=== PATIENT | female | born 1930 | race Caucasian/White ===

== ENCOUNTER → 2016-05-08 | Outpatient (CLI) | payer OTHER ==
[~2016-05-08] MED LIST: ACIDOPHILUS LA1 EACH PO; ALLOPURINOL 30300 M2 PO; ATORVASTATIN CA40 MG PO; BISACODYL SUPP10 MG RECTAL; CALCIUM 600 +1 EAC1 PO; COLACE100 MG PO; COZAAR 50 MG TA50 M2 PO; DUONEB 2.5-0.5 M3 ML INH; ECOTRIN325 MG PO; EFFIENT10 MG PO; ENOXAPARIN30 MG/0.1 SUBQ; HYDROCODONE-AP1 EAC6 PO; LASIX 40 MG TAB40 M2 PO; LIDODERM 5%1 PATC1 TRANSDERM; MAGOX 400400 MG PO; NAMENDA 10 MG T10 MG PO; NAMENDA XR28 MG PO; NAPROSYN250 MG PO; NORVASC5 MG PO; PEPCID20 MG PO; POTASSIUM20 PO; POVIDINE 10% OI28 G1; REMERON15 MG PO; SILVADENE20 GM; STIMULANT LAXA1 EACH PO; TRAMADOL 50 MG50 MG PO; TYLENOL325 MG PO; UNICOMPLEX M TA1 TA1 PO; VITAMINC500 PO; ZETIA10 MG PO
== END ==
LOC: HYPER 07:01
DX: L89.623 Pressure ulcer of left heel, stage 3 (principal); L89.613 Pressure ulcer of right heel, stage 3; L89.891 Pressure ulcer of other site, stage 1; I73.9 Peripheral vascular disease, unspecified; E78.5 Hyperlipidemia, unspecified; K21.9 Gastro-esophageal reflux disease without esophagitis; F03.90 Unspecified dementia, unspecified severity, without behavioral disturbance, psychotic disturbance, mood disturbance, and anxiety; Z96.643 Presence of artificial hip joint, bilateral

== ENCOUNTER → 2016-08-08 | Outpatient (CLI) | payer OTHER | LOC: HYPER 07-07 11:35 | DX: L89.623 Pressure ulcer of left heel, stage 3 (principal); L89.613 Pressure ulcer of right heel, stage 3; L89.220 Pressure ulcer of left hip, unstageable; I70.244 Atherosclerosis of native arteries of left leg with ulceration of heel and midfoot; I70.234 Atherosclerosis of native arteries of right leg with ulceration of heel and midfoot; L97.821 Non-pressure chronic ulcer of other part of left lower leg limited to breakdown of skin; L97.811 Non-pressure chronic ulcer of other part of right lower leg limited to breakdown of skin; F03.90 Unspecified dementia, unspecified severity, without behavioral disturbance, psychotic disturbance, mood disturbance, and anxiety; I73.9 Peripheral vascular disease, unspecified; E78.5 Hyperlipidemia, unspecified; K21.9 Gastro-esophageal reflux disease without esophagitis; M10.9 Gout, unspecified ==

== ENCOUNTER → 2016-09-08 | Outpatient (CLI) | payer OTHER | LOC: HYPER 07:05 | DX: L89.623 Pressure ulcer of left heel, stage 3 (principal); L89.613 Pressure ulcer of right heel, stage 3; I70.244 Atherosclerosis of native arteries of left leg with ulceration of heel and midfoot; I70.234 Atherosclerosis of native arteries of right leg with ulceration of heel and midfoot; F03.90 Unspecified dementia, unspecified severity, without behavioral disturbance, psychotic disturbance, mood disturbance, and anxiety; L89.220 Pressure ulcer of left hip, unstageable; L97.811 Non-pressure chronic ulcer of other part of right lower leg limited to breakdown of skin; L97.821 Non-pressure chronic ulcer of other part of left lower leg limited to breakdown of skin; I73.9 Peripheral vascular disease, unspecified; E78.5 Hyperlipidemia, unspecified; M10.9 Gout, unspecified; K21.9 Gastro-esophageal reflux disease without esophagitis ==

== ENCOUNTER → 2016-10-06 | Outpatient (CLI) | payer OTHER | LOC: HYPER 07:15 | DX: I70.244 Atherosclerosis of native arteries of left leg with ulceration of heel and midfoot (principal); L89.623 Pressure ulcer of left heel, stage 3; I70.234 Atherosclerosis of native arteries of right leg with ulceration of heel and midfoot; L89.613 Pressure ulcer of right heel, stage 3; L89.220 Pressure ulcer of left hip, unstageable; F03.90 Unspecified dementia, unspecified severity, without behavioral disturbance, psychotic disturbance, mood disturbance, and anxiety; E78.5 Hyperlipidemia, unspecified; K21.9 Gastro-esophageal reflux disease without esophagitis ==

== ENCOUNTER → 2016-11-03 | Outpatient (CLI) | payer OTHER | LOC: HYPER 06:55 | DX: L89.623 Pressure ulcer of left heel, stage 3 (principal); L89.892 Pressure ulcer of other site, stage 2; L89.899 Pressure ulcer of other site, unspecified stage; I70.244 Atherosclerosis of native arteries of left leg with ulceration of heel and midfoot; I70.234 Atherosclerosis of native arteries of right leg with ulceration of heel and midfoot; L97.421 Non-pressure chronic ulcer of left heel and midfoot limited to breakdown of skin; L97.411 Non-pressure chronic ulcer of right heel and midfoot limited to breakdown of skin; E78.5 Hyperlipidemia, unspecified; K21.9 Gastro-esophageal reflux disease without esophagitis; F03.90 Unspecified dementia, unspecified severity, without behavioral disturbance, psychotic disturbance, mood disturbance, and anxiety; Z96.643 Presence of artificial hip joint, bilateral ==

== ENCOUNTER 2016-11-28 17:32 | Inpatient (IN) | payer OTHER ==
[~2016-11-28] VITALS: Ht 167.6 cm; Wt 49.0 kg
--- NOTE | ~2016-11-28 | HC ---
[facility] [place] [address] CONSULTATION Name: RAMBOMACY Room #: 428-P ADM IN M.R.#: [id number] Admission: 11/28/16 Attend Phys: Bassem Fuentes MD Discharge: Date of : 32 Report #: [id number] THIS REPORT FOR: //name// CC: Bassem Cuadra REASON FOR CONSULTATION: I was asked to evaluate concerning left lower extremity nonhealing wounds and subsequent infection. HISTORY OF PRESENT ILLNESS: The patient is an 86-year-old with underlying dementia, hypertension, peripheral vascular disease, who has had nonhealing wounds to her left foot. She has increased pain in her heel. The patient was a poor historian. She has been receiving outpatient wound care. She has grown by history Staph aureus from her wound and has been placed on Bactrim prior to her admission. She had a rise in her creatinine following the Bactrim use and this was discontinued. The patient reports no cardiopulmonary, GI or complaints. ALLERGIES: PLAVIX, PENICILLIN. PAST MEDICAL HISTORY: Peripheral vascular disease with lower extremity stents, appendectomy, chronic back pain, left carotid endarterectomy, gout, hypertension, renal stent, dementia. FAMILY HISTORY: Noncontributory. SOCIAL HISTORY: Nonsmoker, no significant alcohol intake. MEDICATIONS: As noted on her MAR including now vancomycin and clindamycin. PHYSICAL EXAMINATION: VITAL SIGNS: Afebrile and hemodynamically stable. GENERAL: Alert and cooperative, in no acute distress. SKIN: Unremarkable. LYMPH: Unremarkable. CHEST: Clear. HEART: Regular. ABDOMEN: Soft and nontender. EXTREMITIES: Lower extremity, pulses in the feet were diminished bilaterally. She had a very tender eschar wound to the plantar heel on the left. There was an ulceration over the medial first toe associated with erythema and serous drainage. There was an eschar and wound over the fifth metatarsal head on the left with associated erythema and diffuse tenderness. Several toes with onychomycosis. Mild tinea pedis. LABORATORY STUDIES: Sodium 142, potassium 3.6, bicarbonate 22, creatinine 1.2 down from 2.8 at admission. Liver function test normal. Hemoglobin 13, WBC 4, [facility] [address] [place] [address] CONSULTATION Name: TONYA RICKS ANN Room #: 428-P ADM IN [facility].#: [id number] Admission: 11/28/16 Attend Phys: Bassem Fuentes MD Discharge: Date of : 32 Report #: [id number] platelet count 160,000, segs 65%, lymphs 18%. Vancomycin trough yesterday was 7. Urinalysis unremarkable. Foot wound culture showing diphtheroids so far. Blood cultures negative. Arterial scan of the lower extremity is pending. MRI scan of the left foot shows insufficiency fracture involving the first metatarsal head without evidence of osteomyelitis, acute osteomyelitis involving the distal fifth metatarsal across the fifth metatarsophalangeal joint to involve the proximal phalanx. IMPRESSION: An 86-year-old with osteomyelitis of the left fifth metatarsal and proximal phalanx along with nonhealing wound to the first toe and heel. She has underlying peripheral vascular disease and dementia. Recommend continuing vancomycin, have orthopedic surgery evaluate for fifth toe and metatarsal head resection and await vascular studies. <ELECTRONICALLY SIGNED> By: Bennie Meza MD 12/02/16 1604 1256 [id number] Bennie Meza MD /nt
--- NOTE | ~2016-11-28 | EKG ---
[address] [place] [address] ELECTROCARDIOGRAM REPORT Name: TONYA RICKS Room #: 428-P ADM IN M.R.#: [id number] Admission: 11/28/16 Attend Phys: Bassem Fuentes MD Discharge: Date of : 32 Report #: [id number] THIS REPORT FOR: //name// ED Test Date: 2016-11-28 Test Time: 19:09:00 Pat Name: TONYA RICKS Department: Room: 428 Gender: F Electronic Semiconductor Processor: eagle : 1930 Requested By: Narayan Avilez Order Number: [id number] MD: Daniel Potter Measurements Intervals [place] Rate: 82 P: 75 VT: 161 QRS: 31 QRSD: 87 T: 95 QT: 376 QTc: 439 Interpretive Statements Sinus rhythm Probable left atrial enlargement Probable left ventricular hypertrophy Compared to ECG 06/13/2015 17:54:10 Sinus tachycardia no longer present Atrial premature complex(es) no longer present Ventricular premature complex(es) no longer present Electronically Signed On 11-29-2016 14:16:21 CDT by Daniel Potter [email or web address] <ELECTRONICALLY SIGNED> By: Daniel Potter MD 11/29/16 1416 1909 1909 Daniel Potter MD /EPI
--- NOTE | ~2016-11-28 | HC ---
[facility] [place] [address] CONSULTATION Name: TONYA RICKS ANN Room #: 428-P ADM IN M.R.#: [id number] Admission: 11/28/16 Attend Phys: Bassem Fuentes MD Discharge: Date of : 32 Report #: [id number] THIS REPORT FOR: //name// CC: Bassem Cuadra CHIEF COMPLAINT: Left foot pain. HISTORY OF PRESENT ILLNESS: The patient is a pleasant 86-year-old female with a history of dementia. She was admitted for difficulty ambulating. Currently, she is unsure why she has been admitted. There is no family at bedside. Nursing staff reports that her spouse reports that she has been ambulating with a more recent decline in function. She has a history of peripheral vascular disease and lower extremity wounds/ulcers managed by Dr. Lopez Cuadra. Her primary physician is Dr. Juventino Pizarro. It is unclear at this time the exact length of symptoms, but it sounds like she has had chronic leg ulcers off and on. Per chart review, she has been managed with wound care with home health nurse, Thursday, Thursday and Thursday and has recently seen Dr. Pizarro who did a wound culture, which was positive for staph, placed on Bactrim. Per chart review, recent lab work revealed an elevated creatinine. No recent injuries are noted. The patient does not recall if she ambulates with any assisted devices. PAST MEDICAL HISTORY: Significant for peripheral vascular disease, stent placed in the right and left leg x 3, appendectomy, history of low back pain, carotid endarterectomy, gout, hypertension, tonsillectomy, renal stent placed, short term dementia, sees Dr. Grady for this, history of foot sores treated by Dr. Vides as well as Dr. Thomas. PHYSICAL EXAMINATION: GENERAL: Reveals the patient is awake. She is answering questions to the best of her ability. VITAL SIGNS: Temperature 98.0, pulse 83, respirations 17, BP 152/82, O2 sats 93% on room air, height 5 feet 6, weight 108. EXTREMITIES: Examination reveals patient is nontender about the hips, knees and ankles. The left foot reveals tenderness about the forefoot and fifth metatarsal to palpation distally. No significant swelling is noted. She does have a laterally based wound over the fifth metatarsal head with an eschar over this, but it does appear to be approximate 1 cm wound on the left heel without significant surrounding erythema, the right heel demonstrates no such wound. There does not appear to be any significant foot swelling. She is able to minimally flex and extend the toes. She reports intact sensation to light touch, although it does seem like this is somewhat diminished. No drainage was noted on the dressing and this healed wound appears to be into the dermal layer. LABORATORY DATA: Was reviewed. White count is 6.6 with 76% neutrophils. Radiographs of the left foot revealed diffuse osteopenia and a subacute [address] [address] CONSULTATION Name: RICKSTONYA Room #: 428-P ADM IN M.R.#: [id number] Admission: 11/28/16 Attend Phys: Bassem Fuentes MD Discharge: Date of : 32 Report #: [id number] appearing fracture of the distal fifth metatarsal. IMPRESSION: 1. Left foot ulcerations. 2. Subacute distal fifth metatarsal fracture. 3. Multiple medical comorbidities including peripheral vascular disease and a history of chronic wound management. PLAN: We will wait for Dr. Cuadra' recommendations on her wound treatment. At this point, I see no obvious need for acute surgical debridement. MRI could be considered to evaluate for potential osteomyelitis about the foot. The patient may utilize a Darco shoe for ambulation as needed. I would recommend heel protection while in bed to reduce further pressure on her heels. Infectious Disease has been consulted as well. If ID and wound management have more suspension of underlying osteomyelitis, MRI can be considered for planning potential surgical debridement. We will continue to follow with you. By: 0911 1115 Ricky Lakhani MD /rajni
--- NOTE | ~2016-11-28 | HC ---
[facility] [place] [address] CONSULTATION Name: TONYA RICKS ANN Room #: 428-P ADM IN M.R.#: [id number] Admission: 11/28/16 Attend Phys: Bassem Fuentes MD Discharge: Date of : 32 Report #: [id number] THIS REPORT FOR: //name// CC: Bassem Cuadra HISTORY OF PRESENT ILLNESS: The patient is an 86-year-old white female admitted with a chronic left leg ulcer, noted to have cellulitis versus osteomyelitis of the left leg. She does have left distal fifth metatarsal fracture, was seen by Orthopedics. They are allowing weightbearing as tolerated with a Darco shoe. MRI of the foot is currently pending regarding further evaluation to see if she does not have any osteomyelitis. Wound care is involved as well. She has been treated for acute renal insufficiency superimposed on chronic renal failure. We are seeing her in rehabilitation medicine consultation. PAST MEDICAL HISTORY: Prior hip fracture, peripheral vascular disease, hypertension, significant short term memory deficits with noted dementia. PAST SURGICAL HISTORY: ETOH usage. ALLERGIES: PLAVIX, PENICILLIN. MEDICATIONS: Please see the full medication listing. SOCIAL HISTORY: Lives in a house with her . Premorbid walker ambulator, no steps. Apparently, was independent with basic ADLs. REVIEW OF SYSTEMS: Did not offer any current complaints of chest pain, shortness of breath or abdominal discomfort. She has some discomfort regarding the left foot as expected. PHYSICAL EXAMINATION: GENERAL: Small statured slender 86-year-old white female in no obvious distress. VITAL SIGNS: Last recorded temperature 97.6, pulse 83, respirations 16, blood pressure 150/72. The patient is alert. HEENT: Appeared to be benign. NEUROLOGIC: Cranial nerves are grossly intact. She has decreased short term memory. She has functional range of motion of both upper extremities without obvious focal weakness. DTRs are trace to 1. Lower extremities, there is no focal calf swelling. Left foot is dressed. Strength of lower extremities is probably at least grade 3+ to 4-/5. She was mod assist with sit to stand. She is ambulating 15 feet mod assist with a front-wheeled walker. ASSESSMENT: An 86-year-old white female with the following problem list: 1. Left lower extremity cellulitis versus osteomyelitis. [address] [address] CONSULTATION Name: RAMBOTONYAMACY Room #: 428-P ADM IN M.R.#: [id number] Admission: 11/28/16 Attend Phys: Bassem Fuentes MD Discharge: Date of : 32 Report #: [id number] 2. Left fifth metatarsal fracture, allowed weightbearing as tolerated in a Darco shoe per Orthopedics. 3. Renal failure, acute on chronic. 4. Electrolyte abnormalities. 5. Hypertension. 6. Premorbid short term memory deficits. 7. Past history of a left femur fracture with hemiarthroplasty. PLAN: MRI of the foot is currently pending. We are assessing the patient to see if she would meet criteria for an acute rehabilitation stay. At this point, we will continue to follow along with you and see how she does. <ELECTRONICALLY SIGNED> By: Alexey Buckley MD 12/04/16 1350 1121 1233 Alexey Buckley MD /nt
[2016-11-28 17:39] VITALS: BP 153/75
[2016-11-28 18:43] LABS: ABSOLUTE NEUTROPHILS 5.1 thou/uL (1.4-8.2); BASOPHILS 0.7 % (0.0-2.0); EOSINOPHILS 1.8 % (0.0-3.0); HEMATOCRIT 45.5 % (37.0-47.0); HEMOGLOBIN 14.8 gm/dL (12.0-15.0); LYMPHOCYTES 9.9 % (24.0-44.0); MANUAL DIFF NO; MCH 32.2 pg (26.0-34.0); MCHC 32.5 g/dL (28.0-37.0); MCV 98.9 fL (80.0-100.0); PLATELET COUNT 192 thou/uL (150-400); POLYS 77.6 % (36.0-66.0); RDW 15.6 % (10.5-14.5); WBC 6.6 thou/uL (4.0-11.0)
[2016-11-28 18:55] LABS: ANION GAP 8 mmol/L (7-16); BUN 51 mg/dL (7-18); CALCIUM 10.4 mg/dL (8.5-10.1); CHLORIDE 100 mmol/L (98-107); CO2 25 mmol/L (21-32); CREATININE 2.8 mg/dL (0.6-1.0); GLUCOSE 106 mg/dL (74-106); POTASSIUM 5.6 mmol/L (3.5-5.1); SODIUM 133 mmol/L (136-145)
[2016-11-28 19:01] LABS: ALBUMIN 3.7 g/dL (3.4-5.0); ALKALINE PHOSPHATASE 82 U/L (46-116); DIRECT BILIRUBIN < 0.1 mg/dL (<0.1-0.3); SGOT 42 U/L (15-37); SGPT 29 U/L (30-65); TOTAL BILIRUBIN 0.5 mg/dL (<0.1-1.0); TOTAL PROTEIN 7.4 g/dL (6.4-8.2)
[2016-11-28 19:17] LABS: LARGE PLATELETS RARE
[2016-11-28] MEDS ORDERED: NORVASC5 MG PO (19:20)
[2016-11-28] MEDS ORDERED: LIPITOR40 MG PO (19:20)
[2016-11-28] MEDS ORDERED: ECOTRIN325 MG PO (19:20)
[2016-11-28 19:41] VITALS: BP 169/73
[2016-11-28 20:48] LABS: URINE BILIRUBIN NEGATIVE (Negative); URINE BLOOD NEGATIVE (Negative); URINE COLOR YELLOW; URINE GLUCOSE-RANDOM* NEGATIVE (Negative); URINE KETONES NEGATIVE (Negative); URINE NITRITE NEGATIVE (Negative); URINE PROTEIN (DIPSTICK) NEGATIVE (Negative); URINE UROBILINOGEN 0.2 E.U./dl (0.2-1.0)
[2016-11-28 20:58] VITALS: BP 127/81
[2016-11-29 03:20] VITALS: BP 134/74
[2016-11-29 04:30] LABS: HEMATOCRIT 44.1 % (37.0-47.0); HEMOGLOBIN 14.2 gm/dL (12.0-15.0); MCHC 32.1 g/dL (28.0-37.0); MCV 99.8 fL (80.0-100.0); RBC 4.42 mil/uL (4.20-5.00); RDW 15.3 % (10.5-14.5); WBC 5.1 thou/uL (4.0-11.0)
[2016-11-29 04:47] LABS: ALBUMIN 3.5 g/dL (3.4-5.0); CALCIUM 9.7 mg/dL (8.5-10.1); CREATININE 2.5 mg/dL (0.6-1.0); TOTAL BILIRUBIN 0.5 mg/dL (<0.1-1.0)
[2016-11-29 04:49] LABS: POTASSIUM 3.5 mmol/L (3.5-5.1)
[2016-11-29 07:42] VITALS: BP 152/82
[2016-11-29 16:20] VITALS: BP 135/56
[2016-11-29 20:14] VITALS: BP 115/72
[2016-11-30 03:59] LABS: CALCIUM 8.4 mg/dL (8.5-10.1); CREATININE 1.6 mg/dL (0.6-1.0)
[2016-11-30 04:00] VITALS: BP 116/43
[2016-11-30 04:01] LABS: POTASSIUM 2.6 mmol/L (3.5-5.1)
[2016-11-30 04:25] LABS: HEMATOCRIT 37.7 % (37.0-47.0); HEMOGLOBIN 12.3 gm/dL (12.0-15.0); MCH 32.4 pg (26.0-34.0); MCHC 32.7 g/dL (28.0-37.0); MCV 99.2 fL (80.0-100.0); PLATELET COUNT 148 thou/uL (150-400); RDW 15.4 % (10.5-14.5); WBC 4.7 thou/uL (4.0-11.0)
[2016-11-30 04:31] LABS: MANUAL DIFF YES
[2016-11-30 05:53] LABS: ABSOLUTE NEUTROPHILS 2.4 thou/uL (1.4-8.2); ANISOCYTOSIS SLIGHT; ATYPICAL LYMPHS 1 %; TOTAL CELL COUNT 100
[2016-11-30 10:07] VITALS: BP 146/71
[2016-11-30 10:53] LABS: MAGNESIUM 1.5 mg/dL (1.8-2.4)
[2016-11-30 17:09] VITALS: BP 147/58
[2016-11-30 19:52] VITALS: BP 129/57
[2016-12-01 03:33] VITALS: BP 153/67
[2016-12-01 05:37] LABS: ABSOLUTE NEUTROPHILS 2.6 thou/uL (1.4-8.2); BASOPHILS 1.3 % (0.0-2.0); HEMATOCRIT 39.8 % (37.0-47.0); LYMPHOCYTES 18.7 % (24.0-44.0); MCH 32.3 pg (26.0-34.0); MCHC 32.6 g/dL (28.0-37.0); MCV 99.1 fL (80.0-100.0); MONOCYTES 10.7 % (1.0-8.0); PLATELET COUNT 161 thou/uL (150-400); POLYS 65.3 % (36.0-66.0); RBC 4.02 mil/uL (4.20-5.00); RDW 15.3 % (10.5-14.5)
[2016-12-01 05:41] LABS: CALCIUM 8.7 mg/dL (8.5-10.1); CREATININE 1.2 mg/dL (0.6-1.0); POTASSIUM 3.6 mmol/L (3.5-5.1)
[2016-12-01 05:44] LABS: MANUAL DIFF NO
[2016-12-01 08:34] VITALS: BP 150/72
[2016-12-01 15:31] VITALS: BP 152/64
[2016-12-01 20:14] VITALS: BP 150/75
[2016-12-02 04:46] VITALS: BP 145/82
[2016-12-02 05:35] LABS: ABSOLUTE NEUTROPHILS 4.4 thou/uL (1.4-8.2); BASOPHILS 0.9 % (0.0-2.0); EOSINOPHILS 2.6 % (0.0-3.0); HEMATOCRIT 42.9 % (37.0-47.0); LYMPHOCYTES 12.9 % (24.0-44.0); MCH 32.5 pg (26.0-34.0); MCHC 32.6 g/dL (28.0-37.0); MCV 99.7 fL (80.0-100.0); MONOCYTES 7.8 % (1.0-8.0); PLATELET COUNT 166 thou/uL (150-400); POLYS 75.8 % (36.0-66.0); RDW 15.7 % (10.5-14.5); WBC 5.8 thou/uL (4.0-11.0)
[2016-12-02 05:38] LABS: MANUAL DIFF NO
[2016-12-02 05:45] LABS: CALCIUM 8.6 mg/dL (8.5-10.1); POTASSIUM 3.3 mmol/L (3.5-5.1)
[2016-12-02 08:19] VITALS: BP 177/78
[2016-12-02 17:36] VITALS: BP 143/80
[2016-12-02 20:00] VITALS: BP 144/63
[2016-12-03 04:00] VITALS: BP 157/66
[2016-12-03 07:04] VITALS: BP 175/72
[2016-12-03 07:05] LABS: ABSOLUTE NEUTROPHILS 3.2 thou/uL (1.4-8.2); EOSINOPHILS 5.2 % (0.0-3.0); LYMPHOCYTES 15.8 % (24.0-44.0); RBC 4.28 mil/uL (4.20-5.00); WBC 4.7 thou/uL (4.0-11.0)
[2016-12-03 07:10] LABS: BASOPHILS 1.3 % (0.0-2.0); HEMATOCRIT 42.6 % (37.0-47.0); HEMOGLOBIN 13.7 gm/dL (12.0-15.0); MCHC 32.2 g/dL (28.0-37.0); MCV 99.4 fL (80.0-100.0); MONOCYTES 9.7 % (1.0-8.0); PLATELET COUNT 164 thou/uL (150-400); RDW 15.4 % (10.5-14.5)
[2016-12-03 07:14] LABS: MANUAL DIFF NO
[2016-12-03 07:18] LABS: CALCIUM 8.5 mg/dL (8.5-10.1); POTASSIUM 3.2 mmol/L (3.5-5.1)
[2016-12-03 15:44] VITALS: BP 171/80
[2016-12-03 15:59] VITALS: BP 149/68
[2016-12-03 20:07] VITALS: BP 136/72
[2016-12-04 03:50] VITALS: BP 151/80
[2016-12-04 05:41] LABS: ABSOLUTE NEUTROPHILS 3.1 thou/uL (1.4-8.2); BASOPHILS 2.1 % (0.0-2.0); EOSINOPHILS 4.7 % (0.0-3.0); HEMATOCRIT 41.5 % (37.0-47.0); HEMOGLOBIN 13.3 gm/dL (12.0-15.0); LYMPHOCYTES 17.2 % (24.0-44.0); MCH 31.8 pg (26.0-34.0); MCV 99.4 fL (80.0-100.0); MONOCYTES 10.6 % (1.0-8.0); PLATELET COUNT 158 thou/uL (150-400); POLYS 65.4 % (36.0-66.0); RBC 4.18 mil/uL (4.20-5.00); RDW 15.7 % (10.5-14.5); WBC 4.8 thou/uL (4.0-11.0)
[2016-12-04 05:48] LABS: MANUAL DIFF NO
[2016-12-04 06:13] LABS: CALCIUM 8.4 mg/dL (8.5-10.1); CREATININE 0.8 mg/dL (0.6-1.0)
[2016-12-04 06:19] LABS: POTASSIUM 2.7 mmol/L (3.5-5.1)
[2016-12-04 06:35] LABS: MAGNESIUM 1.1 mg/dL (1.8-2.4)
[2016-12-04 07:48] VITALS: BP 171/83
[2016-12-04] MEDS ORDERED: ZYVOX600 MG PO (11:37)
[2016-12-04 17:05] VITALS: BP 154/66
[2016-12-04 19:11] VITALS: BP 142/78
[2016-12-05 04:12] VITALS: BP 163/86
[2016-12-05 07:46] VITALS: BP 166/86
[2016-12-05 08:10] VITALS: BP 136/73
[2016-12-05 15:49] VITALS: BP 136/73
[2016-12-05 20:00] VITALS: BP 167/81
[2016-12-06 04:02] LABS: HEMOGLOBIN 13.9 gm/dL (12.0-15.0); MCH 32.2 pg (26.0-34.0); MCHC 32.4 g/dL (28.0-37.0); MCV 99.3 fL (80.0-100.0); RBC 4.33 mil/uL (4.20-5.00); RDW 15.6 % (10.5-14.5); WBC 5.8 thou/uL (4.0-11.0)
[2016-12-06 04:11] LABS: CALCIUM 8.5 mg/dL (8.5-10.1); CREATININE 0.8 mg/dL (0.6-1.0); POTASSIUM 3.3 mmol/L (3.5-5.1)
[2016-12-06 04:37] VITALS: BP 157/77
[2016-12-06 07:32] VITALS: BP 151/69
[2016-12-06] MEDS ORDERED: LINEZOLID600 MG PO (08:40)
[2016-12-06] MEDS ORDERED: CLOPIDOGREL75 MG PO (08:40)
[2016-12-06] MEDS ORDERED: ADULT LOW DOSE81 MG PO (08:41)
[2016-12-06 10:57] VITALS: BP 136/73
[2016-12-06 11:39] VITALS: BP 136/73
[2016-12-06] MEDS ORDERED: POTASSIUM20 PO (11:43)
== END 2016-12-06 12:20 | disposition home health service (06) | DRG 270 ==
LOC: ER 17:32 → EROBS 19:17 → 4E 19:22 → ER 19:22 → 4E 20:05
PROVIDERS: Family Medicine; Nuclear Medicine Nuclear Cardiology; Nurse Practitioner
PROC: 047N3Z1 Dilation of Left Popliteal Artery using Drug-Coated Balloon, Percutaneous Approach (ICD-10-PCS; principal; 2016-12-05)
PROC: 04CN3ZZ Extirpation of Matter from Left Popliteal Artery, Percutaneous Approach (ICD-10-PCS; principal; 2016-12-05)
DX: I73.9 Peripheral vascular disease, unspecified (principal); N17.0 Acute kidney failure with tubular necrosis; E43 Unspecified severe protein-calorie malnutrition; M86.9 Osteomyelitis, unspecified; L03.116 Cellulitis of left lower limb; Z68.1 Body mass index [BMI] 19.9 or less, adult; M10.9 Gout, unspecified; F03.90 Unspecified dementia, unspecified severity, without behavioral disturbance, psychotic disturbance, mood disturbance, and anxiety; E87.5 Hyperkalemia; N18.9 Chronic kidney disease, unspecified; I12.9 Hypertensive chronic kidney disease with stage 1 through stage 4 chronic kidney disease, or unspecified chronic kidney disease; E83.52 Hypercalcemia; S92.352A Displaced fracture of fifth metatarsal bone, left foot, initial encounter for closed fracture; R53.81 Other malaise; L89.620 Pressure ulcer of left heel, unstageable; X58.XXXA Exposure to other specified factors, initial encounter; B95.61 Methicillin susceptible Staphylococcus aureus infection as the cause of diseases classified elsewhere; Z79.899 Other long term (current) drug therapy; Z88.8 Allergy status to other drugs, medicaments and biological substances; Z90.49 Acquired absence of other specified parts of digestive tract; Z88.0 Allergy status to penicillin; Y93.89 Activity, other specified; Y92.89 Other specified places as the place of occurrence of the external cause; Y99.8 Other external cause status
CPT/HCPCS: 10183

== ENCOUNTER → 2016-12-16 | Outpatient (CLI) | payer OTHER ==
[~2016-12-16] MED LIST changes: +ADULT LOW DOSE81 MG PO; +CLOPIDOGREL75 MG PO; +LINEZOLID600 MG PO; +LIPITOR40 MG PO; +ZYVOX600 MG PO
--- NOTE | ~2016-12-16 | HC ---
[facility] [place] [address] CONSULTATION Name: RAMBOMACY Room #: PRE [facility] M..#: [id number] Admission: Attend Phys: Lopez Cuadra MD Discharge: Date of : 32 Report #: [id number] THIS REPORT FOR: //name// CC: Juventino Cuadra DATE OF SERVICE: 12/01/2016 WOUND CARE CONSULTATION CHIEF COMPLAINT: Multiple ulcerations on the left lower extremity. HISTORY OF PRESENT ILLNESS: This is an 86-year-old female patient with history of ongoing dementia and hypertension and significant peripheral vascular disease. She was admitted with pain, swelling and drainage and redness involving her left foot. She has ulcerations on the heel as well as the fifth MTP and left great toe. I have been asked to see with ongoing wound care. The patient is not able to provide a lot of information about herself due to her level of dementia. PAST MEDICAL HISTORY: Positive for cellulitis of left foot, history of chest wall pain, history of hyperkalemia and dementia. The patient has had Angiography of her lower extremities in 08/2004, this was performed by Dr. Jimenez. 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 She underwent cranioplasty with good result. She had angioplasty of the left renal artery and she was noted to have bilateral infrapopliteal arterial occlusive disease. She has not had any subsequent angiography or attempt at revascularization since that time. ALLERGIES: PLAVIX AND PENICILLIN. SOCIAL HISTORY: Negative for alcohol or tobacco use. FAMILY HISTORY: Noncontributory. REVIEW OF SYSTEMS: Not reliably obtainable due to the patient's condition. MEDICATIONS: Include hydrocodone, Zetia, Zyloprim, Caltrate, Namenda, vitamin C, Effient, Norvasc, Ecotrin, Lipitor. PHYSICAL EXAMINATION: VITAL SIGNS: At this time include pulse rate 86, blood pressure 152/64, respiratory rate 15, temperature 97.4. GENERAL: This is a chronically ill-appearing female patient appears to be pleasant, in no distress. [address] [address] CONSULTATION Name: RAMBOMACY Room #: PRE [facility]..#: [id number] Admission: Attend Phys: Lopez Cuadra MD Discharge: Date of : 32 Report #: [id number] HEENT: Normocephalic. NOSE AND THROAT: Clear. NECK: Supple. LUNGS: Clear. ABDOMEN: Soft. Bowel sounds present. EXTREMITIES: Examination of the lower extremities demonstrate diminished distal pulses. Toes appear to be well perfused. The capillary refill is slightly delayed. She has ulceration on the left lateral foot at the left fifth MTP region. There is some fibrin and a little bit of granulation tissue, this does probe down to bone. She has a small ulceration on the left medial great toe that is superficial. She also has a some ____ dry stable eschar involving her left heel that does not appear to be infected. LABORATORY DATA: Include serum sodium 142, potassium 3.6, chloride 110, BUN 17, creatinine 1.2, glucose 71. Prealbumin is 13. Sed rate is 15. X-ray demonstrates abnormality involving the left lateral fifth MTP, possible subacute fracture versus osteomyelitis. CLINICAL IMPRESSION: 1. Multiple ulcerations, left lower extremity including the left fifth MTP, left great toe and left heel. 2. Peripheral arterial disease by clinical exam and by history. 3. ____ X-ray abnormality involving the left fifth MTP region was possibly suggestive of underlying osteomyelitis, although sed rate is noted to be within the normal range. RECOMMENDATIONS: At this point in time, we will recommend Xeroform gauze to the great toe and left lateral foot. We will recommend MRI, which has already been ordered to further evaluate for underlying osteomyelitis versus fracture. I think it would be worthwhile to consider an angiography for better evaluation of her arterial status as well as the possibility of intervention to improve flow, especially in light of the fact that she may need surgical bony debridement involving the left fifth MTP region and may not have adequate vascular supply to support healing. I do appreciate being asked to see the patient in consultation. <ELECTRONICALLY SIGNED> By: Enrico Beckett MD 12/02/16 0742 1621 1803 Enrico Beckett MD /nt
== END ==
LOC: HYPER 12-01 16:58
DX: I70.244 Atherosclerosis of native arteries of left leg with ulceration of heel and midfoot (principal); I70.234 Atherosclerosis of native arteries of right leg with ulceration of heel and midfoot; L97.411 Non-pressure chronic ulcer of right heel and midfoot limited to breakdown of skin; L97.421 Non-pressure chronic ulcer of left heel and midfoot limited to breakdown of skin; L89.623 Pressure ulcer of left heel, stage 3; L89.613 Pressure ulcer of right heel, stage 3; F03.90 Unspecified dementia, unspecified severity, without behavioral disturbance, psychotic disturbance, mood disturbance, and anxiety; L89.220 Pressure ulcer of left hip, unstageable; E78.5 Hyperlipidemia, unspecified; I73.9 Peripheral vascular disease, unspecified; M10.9 Gout, unspecified; K21.9 Gastro-esophageal reflux disease without esophagitis

== ENCOUNTER 2017-01-09 18:35 | Emergency (ER) | payer OTHER ==
[~2017-01-09] VITALS: Ht 170.2 cm; Wt 59.0 kg
== END 2017-01-09 21:24 | disposition home or self-care (01) ==
LOC: ER 18:35
DX: S01.01XA Laceration without foreign body of scalp, initial encounter (principal); M50.30 Other cervical disc degeneration, unspecified cervical region; I10 Essential (primary) hypertension; F10.99 Alcohol use, unspecified with unspecified alcohol-induced disorder; Z88.0 Allergy status to penicillin; Z88.8 Allergy status to other drugs, medicaments and biological substances; Z98.890 Other specified postprocedural states; W18.39XA Other fall on same level, initial encounter; Y93.89 Activity, other specified; Y92.89 Other specified places as the place of occurrence of the external cause; Y99.8 Other external cause status

== ENCOUNTER → 2017-01-13 | Outpatient (CLI) | payer OTHER | LOC: HYPER 07:02 | DX: L89.623 Pressure ulcer of left heel, stage 3 (principal); L89.892 Pressure ulcer of other site, stage 2; S90.422D Blister (nonthermal), left great toe, subsequent encounter; L89.890 Pressure ulcer of other site, unstageable; I70.244 Atherosclerosis of native arteries of left leg with ulceration of heel and midfoot; L97.421 Non-pressure chronic ulcer of left heel and midfoot limited to breakdown of skin; E78.5 Hyperlipidemia, unspecified; M10.9 Gout, unspecified; K21.9 Gastro-esophageal reflux disease without esophagitis; F03.90 Unspecified dementia, unspecified severity, without behavioral disturbance, psychotic disturbance, mood disturbance, and anxiety; Z96.643 Presence of artificial hip joint, bilateral; X58.XXXD Exposure to other specified factors, subsequent encounter ==

== ENCOUNTER 2018-03-28 19:55 | Emergency (ER) | payer OTHER ==
[~2018-03-28] VITALS: Ht 167.6 cm; Wt 59.0 kg
--- NOTE | ~2018-03-28 | EKG ---
[place] [address] [facility] [employer] [place] [address] ELECTROCARDIOGRAM REPORT Name: RAMBOTONYA [id number] Admission: 03/28/18 Attend Phys: Discharge: 03/29/18 Date of : 32 Report #: [id number] THIS REPORT FOR: //name// [facility] ED Test Date: 2018-03-28 Test Time: 20:17:16 Pat Name: TONYA RICKS Department: Room: 150 Gender: F Overhead Door Technician: EMELY : 1930 Requested By: Lashawn Martinez Order Number: [id number] MD: Khurram Sands Measurements Intervals [place] Rate: 100 P: 84 [place]: 190 QRS: 38 QRSD: 82 T: 49 QT: 358 QTc: 462 Interpretive Statements Sinus tachycardia Atrial premature complex Left atrial enlargement Small inferior Q waves Compared to ECG 11/28/2016 19:09:00 Atrial premature complex(es) now present Premature ventricular complexes no longer present Electronically Signed On 03-29-2018 7:36:42 NETWORK SECURITY ADMINISTRATOR by Khurram Sands [email or web address] <ELECTRONICALLY SIGNED> By: Khurram Sands MD, [facility] 03/29/18 0736 16 16 Khurram Sands MD, [facility] /EPI
[2018-03-28 19:57] VITALS: BP 200/88
[2018-03-28] MEDS ORDERED: SYNTHROID25 MC1 (20:06)
[2018-03-28] MEDS ORDERED: PEPCID20 MG PO (20:06)
[2018-03-28] MEDS ORDERED: LASIX 40 MG TAB40 M2 PO (20:07)
[2018-03-28 20:23] LABS: ABSOLUTE NEUTROPHILS 4.6 thou/uL (1.4-8.2); BASOPHILS 1.1 % (0.0-2.0); EOSINOPHILS 4.2 % (0.0-3.0); HEMATOCRIT 45.5 % (37.0-47.0); HEMOGLOBIN 14.9 gm/dL (12.0-15.0); LYMPHOCYTES 14.9 % (24.0-44.0); MCH 31.4 pg (26.0-34.0); MCHC 32.8 g/dL (28.0-37.0); MCV 95.7 fL (80.0-100.0); MONOCYTES 9.5 % (1.0-8.0); PLATELET COUNT 213 thou/uL (150-400); POLYS 70.3 % (36.0-66.0); RBC 4.75 mil/uL (4.20-5.00); RDW 18.1 % (10.5-14.5); WBC 6.6 thou/uL (4.0-11.0)
[2018-03-28 20:33] LABS: CALCIUM 10.5 mg/dL (8.5-10.1); CREATININE 1.6 mg/dL (0.6-1.0)
[2018-03-28 20:34] LABS: POTASSIUM 4.7 mmol/L (3.5-5.1)
[2018-03-28 20:39] LABS: ALBUMIN 3.9 g/dL (3.4-5.0); TOTAL BILIRUBIN 0.5 mg/dL (<0.1-1.0); TOTAL PROTEIN 7.6 g/dL (6.4-8.2)
[2018-03-28] MEDS ORDERED: PRILOSEC 20 MG20 MG PO (23:41)
[2018-03-29 00:08] VITALS: BP 155/78
== END 2018-03-29 00:09 | disposition home or self-care (01) ==
LOC: ER 19:55 → GI 22:03 → ER 22:06 → TBA 22:06
PROVIDERS: Nurse Practitioner Family
DX: T18.128A Food in esophagus causing other injury, initial encounter (principal); I10 Essential (primary) hypertension; M10.9 Gout, unspecified; Z88.0 Allergy status to penicillin; Z88.8 Allergy status to other drugs, medicaments and biological substances; Z90.49 Acquired absence of other specified parts of digestive tract; Z95.5 Presence of coronary angioplasty implant and graft; X58.XXXA Exposure to other specified factors, initial encounter; Y93.89 Activity, other specified; Y92.89 Other specified places as the place of occurrence of the external cause; Y99.8 Other external cause status
CPT/HCPCS: 62110; 62900

== ENCOUNTER → 2018-05-31 | Outpatient (CLI) | payer OTHER ==
[~2018-05-31] MED LIST changes: +PRILOSEC 20 MG20 MG PO; +SYNTHROID25 MC1
== END ==
LOC: SPEECH 09:59 → RAD 09:59
DX: R13.12 Dysphagia, oropharyngeal phase (principal)

== ENCOUNTER 2018-07-12 09:27 | Emergency (ER) | payer OTHER ==
[~2018-07-12] VITALS: Ht 170.2 cm; Wt 54.4 kg
[2018-07-12 12:13] VITALS: BP 194/73
== END 2018-07-12 12:13 | disposition home or self-care (01) ==
LOC: ER 09:27
DX: S00.03XA Contusion of scalp, initial encounter (principal); I10 Essential (primary) hypertension; Z95.5 Presence of coronary angioplasty implant and graft; M10.9 Gout, unspecified; Z88.0 Allergy status to penicillin; Z90.49 Acquired absence of other specified parts of digestive tract; Z88.8 Allergy status to other drugs, medicaments and biological substances; W18.2XXA Fall in (into) shower or empty bathtub, initial encounter; Y93.E1 Activity, personal bathing and showering; Y92.89 Other specified places as the place of occurrence of the external cause; Y99.8 Other external cause status

== ENCOUNTER → 2018-07-13 | Outpatient (CLI) | payer OTHER | LOC: HYPER 07-12 15:26 | DX: I70.244 Atherosclerosis of native arteries of left leg with ulceration of heel and midfoot (principal); L97.421 Non-pressure chronic ulcer of left heel and midfoot limited to breakdown of skin; L89.622 Pressure ulcer of left heel, stage 2; I70.234 Atherosclerosis of native arteries of right leg with ulceration of heel and midfoot; L97.422 Non-pressure chronic ulcer of left heel and midfoot with fat layer exposed; L89.612 Pressure ulcer of right heel, stage 2; L89.893 Pressure ulcer of other site, stage 3; E78.5 Hyperlipidemia, unspecified; M10.9 Gout, unspecified; K21.9 Gastro-esophageal reflux disease without esophagitis; F03.90 Unspecified dementia, unspecified severity, without behavioral disturbance, psychotic disturbance, mood disturbance, and anxiety; Z96.643 Presence of artificial hip joint, bilateral ==